=== PATIENT | male | born 1995 | race Caucasian/White ===

== ENCOUNTER 2019-09-13 14:13 | Emergency (ER) | payer BC, SELFPAY ==
[2019-09-13 14:18] VITALS: BP 144/90; PULSE 75; RESP 18; TEMP 36.8; O2SAT 98
[2019-09-13 14:45] LABS: Basophils Percent Auto 0.7 % (0.2-1.2); Eosinophils Absolute Auto 0.4 K/mm3 (0-0.3); Eosinophils Percent Auto 7.5 % (0-4.4); Hemoglobin 15.1 g/dL (14.0-18.0); Immature Granulocyte Absolute 0.01 K/mm3 (0.00-0.031); Immature Granulocyte Percent A 0.2 % (0-0.5); Lymphocytes Absolute Auto 0.73 K/mm3 (0.9-3.2); Lymphocytes Percent Auto 12.4 % (18.3-44.2); Mean Corpuscular HGB Conc 34.3 g/dl (32-36); Mean Corpuscular Hemoglobin 28.7 pg (26-34); Mean Corpuscular Volume 83.5 fl (80-100); Mean Platelet Volume 11.3 fl (7.4-10.4); Monocytes Absolute Auto 0.5 K/mm3 (0.1-0.6); Monocytes Percent Auto 7.8 % (2.6-8.5); Neutrophils Absolute Auto 4.2 K/mm3 (1.3-6.7); Neutrophils Percent Auto 71.4 % (45.5-73.1); Platelet Count Result 156 k/mm3 (150-375); Red Blood Count 5.27 M/mm3 (4.6-6.20); Red Cell Distribution Width 12.5 % (11.5-14.5); White Blood Count 5.9 K/mm3 (4.5-10.0)
[2019-09-13 14:58] LABS: Alanine Aminotransferase 19 U/L (4-50); Albumin Level 4.4 g/dL (3.5-5.1); Alkaline Phosphatase 58 U/L (38-126); Anion Gap 8 mmol/L (8-16); Aspartate Amino Transferase 22 U/L (17-59); Bilirubin,Total 1.2 mg/dL (0.2-1.3); Blood Urea Nitrogen 10 mg/dL (9-20); Calcium 8.9 mg/dL (8.4-10.2); Carbon Dioxide 27 mmol/L (22-30); Chloride 102 mmol/L (98-107); Estimated CRCL calculation 119 ml/min; Estimated Glomerular Filt Rate > 60; Glucose 91 mg/dL (75-110); Potassium 3.9 mmol/L (3.4-5.0); Sodium 137 mmol/L (137-145)
[2019-09-13 15:00] LABS: Lactic Acid 1.5 mmol/L (0.7-2.1)
--- NOTE | 2019-09-13 15:01 | ED.GENADULT ---
HPI - General Adult General Chief complaint: Skin/Abscess/Foreign Body Stated complaint: L HIP ?BUT BITE Time Seen by Provider: 09/13/19 14:37 Source: patient Mode of arrival: ambulatory Limitations: no limitations History of Present Illness HPI narrative: 24-year-old male who is here for evaluation of what he thought was probably a spider bite. He states that the area started to itch on Sunday on Sunday he noticed some redness. He sent a picture to his PMD on and was told to treat with antibiotic ointment and hydrocortisone cream. Today the area has a black covering in the center is, is purpleish and painful but from his report has not grown in size in 24 hours. Its located on his left hip Onset (ago): day(s) Severity: mild Quality: aching Treatments prior to arrival: NSAID (600 mg) Related Data Allergies Allergy/AdvReac Type Severity Reaction Status Date / Time No Known Allergies Allergy Verified 09/13/19 14:20 Review of Systems Review of Systems: All systems reviewed & are unremarkable except as noted in HPI and below [facility] Social History Social History (Updated 09/13/19 @ 15:15 by Courtney Madsen PA-C) Smoking status: Current some day smoker Alcohol intake: current Substance use: never Living arrangements: alone Occupation/Education: student Gender identity (if verbalized by the patient): Male Exam Const: General: no acute distress and alert Orientation/consciousness: patient oriented x3 Eyes: Pupils: Equal, round and reactive pupils present Resp: Effort & Inspection: normal respiratory effort Auscultation: clear to auscultation bilaterally Cardio: Rate: regular rate Rhythm: regular rhythm Skin: General skin exam: erythema and eschar Lesions: lesion noted (left hip) Other: area of erythema measures 10.5X6 cm, firm mass. Eschar measures 1X2 cm. No fluctuance or drainage. Neuro: General: patient oriented x3 and moves all extremities Extrem: General: normal to inspection Psych: Mental Status: mental status grossly normal Course Course Emergency Course: Labs are unremarkable. The lesion is localized and there is no streaking. We will treat with oral antibiotics, and patient is to follow-up with his primary care physician. Vital Signs Vital signs: Vital Signs Temperature 36.8 C 09/13/19 14:18 Pulse Rate 75 09/13/19 14:18 Respiratory Rate 18 09/13/19 14:18 Blood Pressure 144/90 H 09/13/19 14:18 Pulse Oximetry 98 09/13/19 14:18 Temperature 36.8 C 09/13/19 14:18 Pulse Rate 75 09/13/19 14:18 Respiratory Rate 18 09/13/19 14:18 Blood Pressure 144/90 H 09/13/19 14:18 Pulse Oximetry 98 09/13/19 14:18 Medical Decision Making Vital Signs Vital Signs: Vital Signs Temperature 36.8 C 09/13/19 14:18 Pulse Rate 75 09/13/19 14:18 Respiratory Rate 18 09/13/19 14:18 Blood Pressure 144/90 H 09/13/19 14:18 Pulse Oximetry 98 09/13/19 14:18 Temperature 36.8 C 09/13/19 14:18 Pulse Rate 75 09/13/19 14:18 Respiratory Rate 18 09/13/19 14:18 Blood Pressure 144/90 H 09/13/19 14:18 Pulse Oximetry 98 09/13/19 14:18 Lab Data Result diagrams: 09/13/19 14:38 09/13/19 14:38 Labs: Lab Results 09/13/19 09/13/19 09/13/19 Range/Units 14:38 14:38 14:38 WBC 5.9 (4.5-10.0) K/mm3 RBC 5.27 (4.6-6.20) M/mm3 Hgb 15.1 (14.0-18.0) g/dL Hct 44.0 (42.0-52.0) % MCV 83.5 (80-100) fl MCH 28.7 (26-34) pg MCHC 34.3 (32-36) g/dl RDW 12.5 (11.5-14.5) % Plt Count 156 (150-375) k/mm3 MPV 11.3 H (7.4-10.4) fl Immature Gran % (Auto) 0.2 (0-0.5) % Neut % (Auto) 71.4 (45.5-73.1) % Lymph % (Auto) 12.4 L (18.3-44.2) % [place] % (Auto) 7.8 (2.6-8.5) % Eos % (Auto) 7.5 H (0-4.4) % Baso % (Auto) 0.7 (0.2-1.2) % Lymph # (Auto) 0.73 L (0.9-3.2) K/mm3 [place] # (Auto) 0.5 (0.1-0.6) K/mm3 Eos # (Auto) 0.4 H (0-0.3) K/mm3 Baso
[2019-09-13 15:32] VITALS: BP 138/70; PULSE 78; RESP 20; O2SAT 99
== END 2019-09-13 15:33 | disposition home or self-care (01) ==
PROVIDERS: Emergency Provider Emergency Medicine; PCP Physician Assistant
DX: L03.116 Cellulitis of left lower limb (principal); F17.200 Nicotine dependence, unspecified, uncomplicated
CPT/HCPCS: 36415; 80053; 83605; 85025; 99283